=== PATIENT | female | born 1980 | race Caucasian/White ===

== ENCOUNTER 2017-08-07 05:57 | Emergency (ER) | payer MEDICAID, OTHER ==
[~2017-08-07] VITALS: Ht 160 cm; Wt 100.0 kg
[2017-08-07 07:05] VITALS: BP 140/80
== END 2017-08-07 07:37 | disposition home or self-care (01) ==
LOC: EMS 05:57
DX: H60.91 Unspecified otitis externa, right ear (principal); H66.93 Otitis media, unspecified, bilateral
CPT/HCPCS: 99283